=== PATIENT | male | born 1950 | race Hispanic/Latino ===

== ENCOUNTER 2018-08-27 23:38 | Emergency (ER) | payer OTHER ==
[2018-08-27] MEDS ORDERED: CEPHALEXIN 500 MG CAPSULE ONE (23:59)
[2018-08-27] MEDS ORDERED: SULFAMETHOX-TMP DS 800/160 TAB ONE (23:59)
[2018-08-31] MEDS ORDERED: ASPI81TA40 PO (17:58)
[2018-08-31] MEDS ORDERED: UBID100C10 PO (17:58)
[2018-08-31] MEDS ORDERED: SPIR50TA5 PO (17:58)
[2018-08-31] MEDS ORDERED: MELA5TAB14 PO (17:58)
[2018-08-31] MEDS ORDERED: ALBUHFA IH (17:58)
[2018-08-31] MEDS ORDERED: LOSA50TA2 PO (17:58)
[2018-08-31] MEDS ORDERED: FURO40TA7 PO (17:58)
[2018-08-31] MEDS ORDERED: MULT-1077 PO (17:58)
[2018-08-31] MEDS ORDERED: INSU10VI3 SQ ×2 (17:58)
[2018-08-31] MEDS ORDERED: GABA-531 PO (17:58)
[2018-08-31] MEDS ORDERED: HYDR-4068 PO (17:58)
[2018-08-31] MEDS ORDERED: FERS325 PO (17:58)
[2018-08-31] MEDS ORDERED: ATOR40TA71 PO (17:58)
[2018-08-31] MEDS ORDERED: IRON PO (17:58)
[2018-08-31] MEDS ORDERED: CLOP75TA32 PO (17:58)
== END 2018-08-28 01:16 | disposition home or self-care (01) ==
LOC: EDH 23:38
DX: A46 Erysipelas (principal); S81.812A Laceration without foreign body, left lower leg, initial encounter; E11.9 Type 2 diabetes mellitus without complications; I10 Essential (primary) hypertension; E78.5 Hyperlipidemia, unspecified; J44.9 Chronic obstructive pulmonary disease, unspecified; Z87.891 Personal history of nicotine dependence; Z88.1 Allergy status to other antibiotic agents; X58.XXXA Exposure to other specified factors, initial encounter; Y93.01 Activity, walking, marching and hiking; Y92.34 Swimming pool (public) as the place of occurrence of the external cause; Y99.8 Other external cause status
CPT/HCPCS: 82948